=== PATIENT | female | born 1995 | race African-American/Black ===

== ENCOUNTER 2017-07-02 13:43 | Emergency (ER) | payer SELFPAY ==
[~2017-07-02] VITALS: Ht 170.2 cm; Wt 60.8 kg
[2017-07-02 13:57] VITALS: BP 117/65
[2017-07-02] MEDS ORDERED: MUPI15CR TP (14:11)
--- NOTE | 2017-07-02 14:11 | PHYS DOC ---
Past Medical History Past Medical History: No Pertinent History Past Surgical History: No Surgical History Alcohol Use: None Drug Use: None Adult General Chief Complaint Chief Complaint: INSECT BITE HPI HPI Patient is a 21 year old female who presents with an insect bite to the left inner thigh that she noted yesterday. Patient believes it is a spider bite though she never saw the spider bite her. Patient denies any fever or drainage from the area. Review of Systems Review of Systems Constitutional: Denies fever or chills [] Musculoskeletal: Denies back pain or joint pain [] Integument: insect bite to the left inner thigh Neurologic: Denies headache, focal weakness or sensory changes [] Endocrine: Denies polyuria or polydipsia [] Allergies Allergies Allergies Coded Allergies Type Severity Reaction Last Updated Verified No Known Drug Allergies 07/02/17 No Physical Exam Physical Exam Constitutional: Well developed, well nourished, no acute distress, non-toxic appearance. [] Skin: Left inner thigh distal thigh with a pimple sized lesion with no drainage. The area is not warm or tender to touch. No fluctuance to the area. Back: No tenderness, no CVA tenderness. [] Extremities: No tenderness, no cyanosis, no clubbing, ROM intact, no edema. [] Neurologic: Alert and oriented X 3, normal motor function, normal sensory function, no focal deficits noted. [] Psychologic: Affect normal, judgement normal, mood normal. [] Current Patient Data Vital Signs Vital Signs Date Time Temp Pulse Resp B/P (MAP) Pulse Ox O2 Delivery O2 Flow Rate FiO2 07/02/17 13:57 97.9 96 18 99 Room Air 97.9 EKG EKG [] Radiology/Procedures Radiology/Procedures [] Course & Med Decision Making Course & Med Decision Making Pertinent Labs and Imaging studies reviewed. (See chart for details) Patient has a pimple sized insect bite to the left inner thigh. Vaccines are up- to-date. The area is not infected. Recommended Neosporin to the area. Gave her prescription for Bactroban to use on the area later only if it starts to infected otherwise Neosporin should heal the area for now. Benadryl recommended. Follow-up with PCP in 1-2 weeks. Dragon Disclaimer Dragon Disclaimer This electronic medical record was generated, in whole or in part, using a voice recognition dictation system. Departure Departure Impression: Primary Impression: Insect bite of leg, left Disposition: 01 HOME, SELF-CARE Condition: STABLE Patient Instructions: Insect Bite, [id number] Additional Instructions: You were seen for an insect bite to the left inner thigh the swelling is a local reaction from most insect bites. Keep the area clean and dry. You can apply Neosporin to the area twice a day. You can also use the prescription cream medication to the area if the area appears infected in a couple days but for now use Neosporin and take Benadryl, Claritin or Zyrtec for itching. Keep the area clean and dry. Monitor it for worsening condition. Return to the ED if it gets worse. Scripts Mupirocin Calcium (BACTROBAN CREAM) 15 Gm Cream..g. 1 BREANNE TP TID, #30 GM Prov: ABDULAZIZ CROFT APRN 07/02/17 Problem Qualifiers Primary Impression: Insect bite of leg, left Encounter type: initial encounter Qualified Codes: S80.862A - Insect bite ( nonvenomous), left lower leg, initial encounter; W57.XXXA - Bitten or stung by nonvenomous insect and other nonvenomous arthropods, initial encounter ABDULAZIZ CROFT APRN Jul 02, 2017 14:11
== END 2017-07-02 14:20 | disposition home or self-care (01) ==
LOC: ER 13:43
DX: S70.362A Insect bite (nonvenomous), left thigh, initial encounter (principal); W57.XXXA Bitten or stung by nonvenomous insect and other nonvenomous arthropods, initial encounter; Y93.89 Activity, other specified; Y92.89 Other specified places as the place of occurrence of the external cause; Y99.8 Other external cause status
CPT/HCPCS: 99283